=== PATIENT | female | born 1975 | race African-American/Black ===

== ENCOUNTER 2022-05-24 10:58 | Emergency (ER) | payer OTHER ==
[~2022-05-24] VITALS: Ht 152.4 cm; Wt 87.4 kg
[2022-05-24 10:58] VITALS: BP 146/82
[2022-05-24] MEDS ORDERED: METF500T13 PO (11:21)
[2022-05-24] MEDS ORDERED: METO1TAB7 PO (11:21)
[2022-05-24] MEDS ORDERED: PRAV10TA3 PO (11:21)
[2022-05-24] MEDS ORDERED: CLAR10CA3 PO (11:21)
[2022-05-24] MEDS ORDERED: AMLO1TAB25 PO (11:21)
[2022-05-24] MEDS ORDERED: LOSA100T5 PO (11:21)
[2022-05-24] MEDS ORDERED: NAPR-837 PO (12:14)
[2022-05-24] MEDS ORDERED: CEPH500C PO (12:14)
[2022-05-24] MEDS ORDERED: CEPHALEXIN 500 MG CAP PO ONE (12:15)
[2022-05-24] MEDS ORDERED: NAPROXEN 250 MG TAB PO ONE (12:15)
== END 2022-05-24 12:35 | disposition home or self-care (01) ==
LOC: M ED 10:58
DX: M10.072 Idiopathic gout, left ankle and foot (principal); L03.116 Cellulitis of left lower limb; E11.9 Type 2 diabetes mellitus without complications; I10 Essential (primary) hypertension

== ENCOUNTER → 2022-09-03 | Outpatient (CLI) | payer OTHER ==
[~2022-09-03] MED LIST: AMLO1TAB25 PO; CEPH500C PO; CLAR10CA3 PO; LOSA100T5 PO; METF500T13 PO; METO1TAB7 PO; NAPR-837 PO; PRAV10TA3 PO
== END ==
LOC: M PLALAB 13:46
PROVIDERS: ATTEND Obstetrics & Gynecology
DX: N83.202 Unspecified ovarian cyst, left side (principal)